=== PATIENT | male | born 1955 | race African-American/Black ===

== ENCOUNTER 2017-11-30 10:45 | Emergency (ER) | payer MEDICAID ==
[~2017-11-30] VITALS: Ht 182.9 cm; Wt 77.1 kg
[~2017-11-30 10:45] MED LIST: ALBUTEROL2.5 MG/3 M INH
--- NOTE | 2017-11-30 11:07 | Emergency Room Report ---
History of Present Illness General Chief Complaint: Dyspnea/Respdistress Source: Patient (TAI JUSTICE D.O.) Present Illness HPI Patient presents with complaints of cough and congestion Shortness of breath Patient reports history of COPD reports previous lobectomy secondary to drug abuse Denies any vomiting or diarrhea Denies any neck pain or photophobia Patient symptoms have been worsening he reports increased cough and sputum production Cannot get improvement with outpatient care (TAI JUSTICE D.O.) Allergies: Coded Allergies: No Known Allergies (Unverified , 11/30/17) Patient History Past Medical History: see triage record Pertinent Family History: none Reviewed Nursing Documentation: PMH: Agreed, PSxH: Agreed (TAI JUSTICE D.O.) Nursing Documentation-PMH Hx COPD: Yes - One lung only. (TAI JUSTICE D.O.) Review of Systems All Other Systems: negative except mentioned in HPI (TAI JUSTICE D.O.) Physical Exam Vital Signs Date Time Temp Pulse Resp B/P (MAP) Pulse Ox O2 Delivery O2 Flow Rate FiO2 11/30/17 10:43 98.1 104 18 145/87 100 Room Air Sp02 EP Interpretation: reviewed, normal General Appearance: mild distress - short of breath Head: normocephalic, atraumatic Eyes: bilateral eye PERRL, bilateral eye EOMI ENT: normal pharynx Neck: normal inspection, full range of motion, supple Respiratory: crackles - Crackles and wheezing diffusely, patient also shows signs of mild retraction Cardiovascular #1: no edema, no gallop, tachycardia Gastrointestinal: non tender, soft Genitourinary: no CVA tenderness Musculoskeletal: normal inspection, back normal Neurologic: alert, oriented x3, responsive Skin: normal inspection, normal color Lymphatic: no adenopathy (TAI JUSTICE D.O.) Medical Decision Making Diagnostic Impression: Primary Impression: COPD (chronic obstructive pulmonary disease) Additional Impression: COPD exacerbation Labs Test 11/30/17 11:15 White Blood Count 6.0 K/UL (4.8-10.8) Red Blood Count 5.62 M/UL (4.70-6.10) Hemoglobin 16.0 G/DL (14.2-18.0) Hematocrit 51.9 % (42.0-52.0) Mean Corpuscular Volume 92 FL (80-99) Mean Corpuscular Hemoglobin 28.4 PG (27.0-31.0) Mean Corpuscular Hemoglobin Concent 30.7 G/DL (32.0-36.0) Red Cell Distribution Width 12.6 % (11.6-14.8) Platelet Count 298 K/UL (150-450) Mean Platelet Volume 8.6 FL (6.5-10.1) Neutrophils (%) (Auto) 43.6 % (45.0-75.0) Lymphocytes (%) (Auto) 36.2 % (20.0-45.0) Monocytes (%) (Auto) 8.9 % (1.0-10.0) Eosinophils (%) (Auto) 9.4 % (0.0-3.0) Basophils (%) (Auto) 1.8 % (0.0-2.0) Sodium Level 143 MMOL/L (136-145) Potassium Level 4.2 MMOL/L (3.5-5.1) Chloride Level 107 MMOL/L (98-107) Carbon Dioxide Level 30 MMOL/L (21-32) Anion Gap 6 mmol/L (5-15) Blood Urea Nitrogen 13 mg/dL (7-18) Creatinine 1.3 MG/DL (0.55-1.30) Estimat Glomerular Filtration Rate > 60 mL/min (>60) Glucose Level 117 MG/DL (74-106) Calcium Level 8.5 MG/DL (8.5-10.1) Total Bilirubin 0.4 MG/DL (0.2-1.0) Aspartate Amino Transf (AST/SGOT) 28 U/L (15-37) Alanine Aminotransferase (ALT/SGPT) 24 U/L (12-78) Alkaline Phosphatase 71 U/L (46-116) Total Creatine Kinase 401 U/L (26-308) Creatine Kinase MB 3.5 NG/ML (0.0-3.6) Creatine Kinase MB Relative Index 0.8 Troponin I 0.006 ng/mL (0.000-0.056) Pro-B-Type Natriuretic Peptide 13 pg/mL (0-125) Total Protein 7.0 G/DL (6.4-8.2) Albumin 3.5 G/DL (3.4-5.0) Globulin 3.5 g/dL Albumin/Globulin Ratio 1.0 (1.0-2.7) (TAI JUSTICE D.O.) ER Course The patient was noted to have one out of 2 bottles growing gram-positive cocci in clusters. The patient had been transferred to [facility]. The results will be faxed to [facility] (Lang Zhang) Last Vital Signs Date Time Temp Pulse Resp B/P (MAP) Pulse Ox O2 Delivery O2 Flow Rate FiO2 11/30/17 10:43 98.1 104 18 145/87 100 Room Air Status: improved (TAI JUSTICE D.O.) Disposition: XFER SHT-TRM HOSP Condition: Serious TAI JUSTICE D.O. Nov 30, 2017 11:07 Lang Zhang Dec 02, 2017 12:57
[2017-11-30] MEDS ORDERED: Albuterol ud Inhalation HHN ONE ×2 (11:15→12:00)
[2017-11-30] MEDS ORDERED: Ipratropium 0.02% Inh Soln 2.5ml UD HHN ONE (11:15)
[2017-11-30] MEDS ORDERED: Solu-MEDROL 125mg Inj IVP ONE (11:15)
[2017-11-30 11:16] VITALS: BP 145/87
[2017-11-30 11:36] LABS: BASOPHILS % (AUTO) 1.8 % (0.0-2.0); EOSINOPHILS % (AUTO) 9.4 % (0.0-3.0); HEMATOCRIT 51.9 % (42.0-52.0); LYMPHOCYTES % (AUTO) 36.2 % (20.0-45.0); MEAN CORPUSCULAR VOLUME 92 FL (80-99); MONOCYTES % (AUTO) 8.9 % (1.0-10.0); NEUTROPHILS % (AUTO) 43.6 % (45.0-75.0); PLATELET COUNT 298 K/UL (150-450); RED BLOOD COUNT 5.62 M/UL (4.70-6.10); RED CELL DISTRIBUTION WIDTH 12.6 % (11.6-14.8)
[2017-11-30 11:46] LABS: ANION GAP 6 mmol/L (5-15); BLOOD UREA NITROGEN 13 mg/dL (7-18); CALCIUM 8.5 MG/DL (8.5-10.1); CARBON DIOXIDE 30 MMOL/L (21-32); CHLORIDE 107 MMOL/L (98-107); CREATININE 1.3 MG/DL (0.55-1.30); POTASSIUM 4.2 MMOL/L (3.5-5.1); SODIUM 143 MMOL/L (136-145)
[2017-11-30 12:00] LABS: ALANINE AMINOTRANSFERASE 24 U/L (12-78); ALBUMIN 3.5 G/DL (3.4-5.0); ALKALINE PHOSPHATASE 71 U/L (46-116); ASPARTATE AMINO TRANSFERASE 28 U/L (15-37); BILIRUBIN,TOTAL 0.4 MG/DL (0.2-1.0); CKMB 3.5 NG/ML (0.0-3.6); CREATINE KINASE 401 U/L (26-308)
[2017-11-30 13:28] VITALS: BP 145/87
[2017-11-30 13:38] VITALS: BP 145/87
--- NOTE | 2017-12-01 21:49 | Cardiology Report ---
APPROVED REPORT EKG Measurement Heart [id number] CT [id number] Normal sinus rhythm Rightward axis Borderline ECG
--- NOTE | 2017-12-03 10:27 | Diagnostic Imaging Report ---
Indication: Chest pain Technique: XRAY Chest 1v Comparison: None Findings: Cardiac and mediastinal silhouette is within normal limits. Interstitial and linear opacities are noted of the lungs bilaterally. There is no gross consolidation or pleural effusion. Degenerative changes of the spine are seen. Impression: Acuity indeterminate linear and interstitial opacities of the bilateral lungs. Underlying chronic lung changes are suspected. Clinical correlation/follow-up recommended.
== END 2017-11-30 14:29 | disposition short-term general hospital (02) ==
LOC: EDBD 10:45 → EMR 11:19
DX: J44.1 Chronic obstructive pulmonary disease with (acute) exacerbation (principal)
CPT/HCPCS: 36415; 71045; 80053; 82550; 82553; 83880; 84484; 85025; 86710; 87040; 87181; 93005; 94640; 94664; 96361; 96374; 96375; 99285; J1956; J2930